=== PATIENT | male | born 1985 | race Caucasian/White ===

== ENCOUNTER 2018-07-08 10:24 | Emergency (ER) | payer OTHER ==
[2018-07-08] MEDS ORDERED: Adacel (T-DAP) 0.5 ML VIAL ONE (10:59)
[2018-07-08 11:51] LABS: HIV (1/2) Antibody/Antigen Non-Reactive (NonReactive); HIV 1/2 INDEX 0.18 S/CO (<1.00); Hep C IgG Ab Non-Reactive (NonReactive); Hep C Index 0.12 S/CO (0-0.79)
[2018-07-08 11:59] LABS: HBSAB Concentration Greater than 1000.00 mIU/mL; Hep B Surf AB Reactive (NonReactive)
== END 2018-07-08 12:06 | disposition home or self-care (01) ==
LOC: ERS 10:24
DX: S00.81XA Abrasion of other part of head, initial encounter (principal); Z23 Encounter for immunization; Y08.89XA Assault by other specified means, initial encounter
CPT/HCPCS: 86706; 86803; 87389; 90471; 90715